=== PATIENT | female | born 2000 | race Caucasian/White ===

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

== ENCOUNTER 2022-04-18 08:43 | Emergency (ER) | payer OTHER ==
[~2022-04-18] VITALS: Ht 162.6 cm; Wt 82.0 kg
[2022-04-18] VITALS (13 sets, daily range): BP systolic 106–138; BP diastolic 64–94
[~2022-04-18 08:43] MED LIST changes: +KEFLEX500 M1 PO; +ZOFRAN4 MG/TAB PO
[2022-04-18 09:25] LABS: HEMATOCRIT 41.6 % (37.0-47.0); HEMOGLOBIN 13.6 g/dl (12.0-16.0); IMMATURE GRANULOCYTES 0.1 % (0.0-5.0); MEAN CELL VOLUME 93.1 fL CALC (80.0-100.0); MEAN CORPUSCULAR HGB 30.4 pG CALC (26.0-32.0); MEAN CORPUSCULAR HGB CONC 32.7 g/dL CAL (32.0-36.0); NEUT# 4.84 thou/uL (2.00-7.15); RED BLOOD COUNT 4.47 mill/uL (4.20-5.60); RED CELL DISTRI WIDTH 13.2 % (11.5-15.5)
[2022-04-18 09:29] LABS: ALBUMIN 4.6 g/dL (3.2-5.0); ALKALINE PHOSPHATASE 56 u/l (38-126); ANION GAP 13 (6-22 (CALC)); BILIRUBIN, TOTAL 0.6 mg/dL (0.0-1.4); BUN 8 mg/dL (7-17); BUN/CREATININE RATIO 11 (12-20 (CALC)); CARBON DIOXIDE 25 mmol/l (22-30); CHLORIDE 104 mmol/l (95-108); CREATININE 0.7 mg/dL (0.5-1.0); GFR FOR AFR.AMER. > 60 ML/MIN (>=60 (CALC)); GFR OTHER RACES > 60 ML/MIN (>=60 (CALC)); LIPASE 42 u/l (23-300); POTASSIUM 3.6 mmol/l (3.5-5.1); SODIUM 139 mmol/l (137-146); TOTAL PROTEIN 7.6 g/dL (6.3-8.2)
[2022-04-18 09:31] LABS: SGOT/AST 42 u/l (14-36)
[2022-04-18] MEDS ORDERED: PYRIDIUM200 MG PO (11:32)
[2022-04-18] MEDS ORDERED: ZOFRAN4 MG/TAB PO (11:32)
[2022-04-18] MEDS ORDERED: DICYCLOMINE HCL20 MG PO (11:32)
[2022-04-18] MEDS ORDERED: PERCOCET 5/325M1 TAB PO (11:32)
[2022-04-18] MEDS ORDERED: OMNI-PAC300 MG PO (11:32)
[2022-04-18 12:59] LABS: URINE BLOOD DIPSTICK LARGE (NEGATIVE); URINE COLOR YELLOW; URINE GLUCOSE - DIPSTICK NEGATIVE (NEGATIVE); URINE KETONE 40 mg/dL (NEGATIVE); URINE LEUK ESTERASE NEGATIVE (NEGATIVE); URINE PH 6.5 (4.5-8.0); URINE PROTEIN - DIPSTICK TRACE mg/dL (NEG-TRACE); URINE SPECIFIC GRAVITY <=1.005; URINE UROBILINOGEN - DIPSTICK 0.2 E.U./dL (0.2)
[2022-04-18 13:17] LABS: URINE BILIRUBIN - DIPSTICK SMALL (NEGATIVE); URINE NITRITE - DIPSTICK NEGATIVE (Negative)
== END 2022-04-18 13:19 | disposition home or self-care (01) ==
LOC: ED 08:43
PROVIDERS: Internal Medicine
DX: N13.2 Hydronephrosis with renal and ureteral calculous obstruction (principal); Z87.442 Personal history of urinary calculi
CPT/HCPCS: Q9967

== ENCOUNTER 2022-10-28 08:47 | Observation (INO) | payer OTHER ==
[~2022-10-28] VITALS: Ht 162.6 cm; Wt 61.9 kg
[2022-10-28] VITALS (11 sets, daily range): BP systolic 92–119; BP diastolic 61–78
[~2022-10-28 08:47] MED LIST changes: +DICYCLOMINE HCL20 MG PO; +OMNI-PAC300 MG PO; +PERCOCET 5/325M1 TAB PO; +PYRIDIUM200 MG PO
--- NOTE | 2022-10-28 08:55 | NUR ---
PATIENT TO ROOM 12 VIA WHEELCHAIR
[2022-10-28 09:12] LABS: BASO% 0.2 % (0-3); EOS% 0.8 % (0-8); HEMATOCRIT 42.2 % (37.0-47.0); HEMOGLOBIN 13.6 g/dl (12.0-16.0); IMMATURE GRANULOCYTES 0.2 % (0.0-5.0); LYMPH% 9.4 % (15-41); MEAN CORPUSCULAR HGB 30.6 pG CALC (26.0-32.0); MEAN CORPUSCULAR HGB CONC 32.2 g/dL CAL (32.0-36.0); MONO% 4.3 % (2-13); NEUT# 13.87 thou/uL (2.00-7.15); NEUT% 85.1 % (42-76); RED BLOOD COUNT 4.44 mill/uL (4.20-5.60); RED CELL DISTRI WIDTH 13.2 % (11.5-15.5)
[2022-10-28 09:21] LABS: ALBUMIN 4.6 g/dL (3.2-5.0); ALKALINE PHOSPHATASE 56 u/l (38-126); BILIRUBIN, TOTAL 0.8 mg/dL (0.02-1.3); BUN 10 mg/dL (7-17); BUN/CREATININE RATIO 15 (12-20 (CALC)); CHLORIDE 106 mmol/l (95-108); CREATININE 0.7 mg/dL (0.5-1.0); GFR FOR AFR.AMER. > 60 ML/MIN (>=60 (CALC)); GFR OTHER RACES > 60 ML/MIN (>=60 (CALC)); POTASSIUM 3.6 mmol/l (3.5-5.1); SGOT/AST 27 u/l (14-36); SODIUM 138 mmol/l (137-146); TOTAL PROTEIN 7.7 g/dL (6.3-8.2)
[2022-10-28 09:22] LABS: ANION GAP 17 (6-22 (CALC)); CARBON DIOXIDE 19 mmol/l (22-30)
--- NOTE | 2022-10-28 09:30 | NUR ---
EDUCATED ON PLAN OF CARE. MOTHER At bedside. improved nausea, vomitting.
[2022-10-28 09:48] LABS: URINE BLOOD DIPSTICK TRACE-INTACT (NEGATIVE); URINE COLOR YELLOW; URINE GLUCOSE - DIPSTICK NEGATIVE (NEGATIVE); URINE KETONE >=80 mg/dL (NEGATIVE); URINE LEUK ESTERASE NEGATIVE (NEGATIVE); URINE PROTEIN - DIPSTICK NEGATIVE (NEG-TRACE); URINE SPECIFIC GRAVITY >=1.030; URINE UROBILINOGEN - DIPSTICK 0.2 E.U./dL (0.2)
[2022-10-28 09:52] LABS: URINE BILIRUBIN - DIPSTICK SEE COMMNET (NEGATIVE); URINE NITRITE - DIPSTICK NEGATIVE (Negative)
--- NOTE | 2022-10-28 10:10 | NUR ---
patient resting in bed. educated on cont wait time.
--- NOTE | 2022-10-28 11:10 | NUR ---
patient states she ate one pancake at 0600 and water at 0600 and 0800. or notified. covid swab collected
--- NOTE | 2022-10-28 12:03 | NUR ---
educated patient and mother at bedside that or expects to proceed with sx at 1330. surgeon discussed procedure and risks with patient. they wish to proceed
--- NOTE | 2022-10-28 12:22 | NUR ---
or bedside for consent for sx
--- NOTE | 2022-10-28 13:33 | NUR ---
PATIENT TO OR
[2022-10-28] MEDS ORDERED: PERCOCET 5/325M1 TAB PO (15:24)
== END 2022-10-28 17:35 | disposition home or self-care (01) ==
LOC: ED 08:47 → ED-I 10:42 → ED 10:42 → MS2 10:53
PROVIDERS: Family Medicine; ADMIT Surgery; ATTEND Surgery
DX: K35.30 Acute appendicitis with localized peritonitis, without perforation or gangrene (principal); F17.210 Nicotine dependence, cigarettes, uncomplicated; Z87.442 Personal history of urinary calculi; Z20.822 Contact with and (suspected) exposure to COVID-19
CPT/HCPCS: J0131; Q9967